=== PATIENT | female | born 1955 | race Caucasian/White ===

== ENCOUNTER 2024-07-30 16:32 | Emergency (ER) | payer MEDICARE ==
[~2024-07-30] VITALS: Ht 160 cm; Wt 55.4 kg
[2024-07-30 16:45] VITALS: O2SAT 100
[2024-07-30] MEDS ORDERED: CLIN-194 MT (17:40)
[2024-07-30] MEDS ORDERED: MUPI1OIN4 TP (17:40)
[2024-07-30] MEDS: ONDANSETRON 4MG ODT PO ONE (17:51)
[2024-07-30] MEDS: HYDROCODONE/ACETAMINOPHEN 5/325MG TABLET PO ONE (17:52)
[2024-07-30] MEDS: CLINDAMYCIN 600MG PREMIX 50 ML IV SCH (17:52)
[2024-07-30] MEDS: CLINDAMYCIN PHOSPHATE 600MG/4ML VIAL IM ONE (18:06)
[2024-07-30 18:22] VITALS: BP 145/61; PULSE 86; RESP 16; TEMP 37.2; O2SAT 100
== END 2024-07-30 18:23 | disposition home or self-care (01) ==
LOC: ER 16:32
DX: L02.811 Cutaneous abscess of head [any part, except face] (principal); E11.9 Type 2 diabetes mellitus without complications; I10 Essential (primary) hypertension; Z88.2 Allergy status to sulfonamides; Z98.51 Tubal ligation status; Z98.890 Other specified postprocedural states
CPT/HCPCS: 99284; 96365; Q0162; J3490